=== PATIENT | male | born 1980 | race American Indian/Alaskan Native ===

== ENCOUNTER 2020-03-02 06:53 | Inpatient (IN) | payer SELFPAY ==
[2020-03-02] MEDS ORDERED: SODIUM CHLORIDE 0.9% 1000 ML 1,000 ML IV ONE (07:03)
--- NOTE | 2020-03-02 07:07 | Emergency Department Report ---
HPI - General Time Seen by Provider: 03/02/20 06:58 - HPI HPI: 39-year-old male presents to the emergency department via EMS after he was found unresponsive in the bathtub. Patient says he does not remember anything that occurred this morning and also does not appear very forthcoming. It is unknown who called EMS. Patient received some Narcan in route which did appear to grea tly improve his mental status. The patient is awake and conversive during my initial examination. He has a past medical history of asthma. The patient admits to smoking marijuana yesterday. He says that he occasionally will use a Xanax but has not done so in the past 24 hours. He drank 1 beer last night. ED Past Medical Hx - Medications Home Medications: Home Medications Medication Instructions Recorded Confirmed Last Taken Type No Known Home Medications [No 03/02/20 03/02/20 Unknown History Reported Home Medications] ED Review of Systems ROS: Stated complaint: AMS Other details as noted in HPI Comment: All other systems reviewed and negative Constitutional: denies: chills, fever Eyes: denies: eye pain, vision change ENT: denies: ear pain, throat pain Respiratory: denies: cough, shortness of breath Cardiovascular: denies: chest pain, palpitations Gastrointestinal: denies: abdominal pain, vomiting Genitourinary: denies: dysuria, discharge Musculoskeletal: denies: back pain, arthralgia Skin: denies: rash, lesions Neurological: other (Unresponsive episode). denies: headache Physical Exam - Physical Exam Physical Exam: GENERAL: The patient is well-developed well-nourished. HENT: Normocephalic. Atraumatic. Patient has moist mucous membranes. EYES: Extraocular motions are intact. NECK: Supple. Trachea is midline. CHEST/LUNGS: Clear to auscultation. There is no respiratory distress noted. HEART/CARDIOVASCULAR: Irregular. There is no tachycardia. There is no murmur. ABDOMEN: Abdomen is soft, nontender. Patient has normal bowel sounds. There is no abdominal distention. SKIN: Skin is warm and dry. NEURO: Patient is sleepy but is easily arousable. Once awake he is oriented to person, place and time. The patient has no focal neurologic deficits. Normal speech. Cranial nerves II through XII grossly intact. MUSCULOSKELETAL: There is no tenderness or deformity. There is no evidence of acute injury. ED Course - Consultations Consultation #1: 03/02/20 09:06 I spoke with the radiology receptionist on-call, Dr. Cyndi Dumont, regarding the patient's new onset atrial fibrillation with cocaine use. If the patient's only risk factor for thromboembolism is this new onset A. fib that is rate controlled and in this young individual, then heparin or anticoagulation is not necessary at this time. They are happy to see the patient as a consult. ED Medical Decision Making - Lab Data Result diagrams: 03/02/20 07:00 03/02/20 07:00 - EKG Data -: EKG Interpreted by Me - EKG Data When compared to previous EKG there are: previous EKG unavailable Interpretation: other (Atrial fibrillation, normal axis, prolonged QTC, rate of 91 bpm, LVH) - Radiology Data Radiology results: report reviewed, image reviewed interpreted by me: Chest x-ray does not show any acute process. There are no pleural effusions, obvious pneumonia and there is no pneumothorax. CT head/brain wo con INDICATION / CLINICAL INFORMATION: Syncope, unresponsive episode. TECHNIQUE: All CT scans at this location are performed using CT dose reduction for ALARA by means of automated exposure control. COMPARISON: None available. FINDINGS: No intracranial hemorrhage, mass effect or abnormal extra- axial fluid collection. The ventricular system and basilar cisterns are normal. No evidence of territorial infarction. The visualized paranasal sinuses and osseous structures are normal. IMPRESSION: 1. No acute intracranial abnormality. CTA CHEST WITH CONTRAST INDICATION / CLINICAL INFORMATION: MAIN: Syncope with new onset a-fib, elevated dimer OMNIPAQUE 350 60ML LOW GFR. TECHNIQUE: Axial CT images were obtained through the chest after injection of IV contrast. 3 plane MIP and/or 3D reconstructions were produced. All CT scans at this location are performed using CT dose reduction for ALARA by means of automated exposure control. COMPARISON: None available. FINDINGS: PULMONARY ARTERIES: No pulmonary emboli. THORACIC AORTA: No significant abnormality. HEART: No significant abnormality. CORONARY ARTERIES: No significant calcification. MEDIASTINUM / NUNU: No significant abnormality. PLEURA: No pleural effusion. No pneumothorax. LUNGS: No acute air space or interstitial disease. ADDITIONAL FINDINGS: None. UPPER ABDOMEN: No acute findings. SKELETAL STRUCTURES: No significant osseous abnormality. IMPRESSION: 1. No CT evidence for pulmonary embolism. 2. No acute findings. - Medical Decision Making This patient presents to the emergency department after he was found unresponsive in a bathtub at home. He was awake by the time he arrived to the emergency department after receiving Narcan. There are no obvious focal, motor or sensory deficits on examination. Cranial nerves II through XII grossly intact. CT scan of the head did not show any bleed, shift, mass, ischemia, or any other acute process. EKG shows rate controlled atrial fibrillation which is new onset for this patient. The patient's labs shows venous acidosis, lactic acidosis, and initial elevated serum blood sugar of about 370, and a urine drug screen positive for cocaine and marijuana. The patient did not require any insulin as the IV fluid resuscitation given to him treated the hyperglycemia. Cardiology was contacted and consulted regarding the new onset A. fib. Patient will be admitted to the hospital for further evaluation and treatment and was accepted for admission by the hospitalist service. Critical Care Time: Yes Critical care time in (mins) excluding proc time.: 35 Critical care attestation.: If time is entered above; I have spent that time in minutes in the direct care of this critically ill patient, excluding procedure time. Critical care time was spent on this patient in doing his initial evaluation, multiple re- evaluations, ordering and interpretation of labs and imaging, IV fluid resuscitation, cardiology consultation, multiple discussions with the patient. Critical Care Time: 35 minutes ED Disposition Clinical Impression: New onset atrial fibrillation, Acidosis, Hyperglycemia, Unresponsive episode, Cocaine use Disposition: 09 OP ADMIT IP TO THIS HOSP Is pt being admited?: Yes Condition: Serious Time of Disposition: 09:08
[2020-03-02 07:21] LABS: Basophils % (Auto) 0.4 % (0.0-1.8); Eosinophils % (Auto) 0.2 % (0.0-4.3); Hematocrit 40.9 % (35.5-45.6); Hemoglobin 13.7 gm/dl (11.8-15.2); Lymphocytes # (Auto) 2.2 K/mm3 (1.2-5.4); Lymphocytes % (Auto) 30.9 % (13.4-35.0); Mean Corpuscular HGB Conc 34 % (32-34); Mean Corpuscular Volume 91 fl (84-94); Monocytes # (Auto) 0.3 K/mm3 (0.0-0.8); Monocytes % (Auto) 4.4 % (0.0-7.3); Platelet Count 232 K/mm3 (140-440); Red Cell Distribution Width 14.7 % (13.2-15.2)
[2020-03-02 07:37] LABS: Albumin 4.9 g/dL (3.9-5); Calcium 9.3 mg/dL (8.4-10.2)
[2020-03-02] MEDS ORDERED: INSULIN REGULAR, HUMAN 100 UNITS/1 ML IV ONE (07:41)
[2020-03-02 07:55] LABS: INR 1.01 (0.87-1.13)
[2020-03-02 07:56] LABS: Partial Thromboplastin Time 25.8 Sec. (24.2-36.6)
[2020-03-02 08:01] LABS: Bilirubin,Urine NEG (Negative); Blood,Urine NEG (Negative); Color,Urine Yellow (Yellow); Mucus,Urine FEW /HPF; Protein,Urine <15 mg/dL mg/dL (Negative); Urobilinogen,Urine < 2.0 mg/dL (<2.0)
[2020-03-02 08:07] LABS: Amphetamine Screen,Urine PRESUMPTIVE NEGATIVE; Benzodiazepines Screen,Urine PRESUMPTIVE NEGATIVE; Methadone Screen,Urine PRESUMPTIVE NEGATIVE; Opiate Screen,Urine PRESUMPTIVE NEGATIVE
--- NOTE | 2020-03-02 08:09 | XRay Report ---
CHEST 1 VIEW INDICATION / CLINICAL INFORMATION: unresponsive episode. COMPARISON: None available. FINDINGS: SUPPORT DEVICES: None. HEART / MEDIASTINUM: No significant abnormality. LUNGS / PLEURA: No significant pulmonary or pleural abnormality. No pneumothorax. ADDITIONAL FINDINGS: No significant additional findings. IMPRESSION: 1. No acute findings. Signer Name: Lexa Vela MD Signed: 03/02/2020 8:04 AM Workstation Name: [id number]
--- NOTE | 2020-03-02 08:29 | Cat Scan Report ---
CT head/brain wo con INDICATION / CLINICAL INFORMATION: Syncope, unresponsive episode. TECHNIQUE: All CT scans at this location are performed using CT dose reduction for ALARA by means of automated e xposure control. COMPARISON: None available. FINDINGS: No intracranial hemorrhage, mass effect or abnormal extra-axial fluid collection. The ventricular system and basilar cisterns are normal. No evidence of territorial infarction. The visualized paranasal sinuses and osseous structures are normal. IMPRESSION: 1. No acute intracranial abnormality. Signer Name: Lexa Vela MD Signed: 03/02/2020 8:25 AM Workstation Name: [id number]
[2020-03-02 08:40] LABS: Cannabinoid Screen,Urine PRESUMPTIVE POSITIVE; Cocaine Screen,Urine PRESUMPTIVE POSITIVE
[2020-03-02] MEDS ORDERED: HEPARIN 10,000 UNITS/10 ML VIAL IV ONE (08:58)
[2020-03-02] MEDS ORDERED: HEPARIN/ 0.45% NACL DRIP 25,000 UNIT/500 ML BAG IV SCH (09:00)
--- NOTE | 2020-03-02 10:28 | Cat Scan Report ---
CTA CHEST WITH CONTRAST INDICATION / CLINICAL INFORMATION: MAIN: Syncope with new onset a-fib, elevated dimer OMNIPAQUE 350 60ML LOW GFR. TECHNIQUE: Axial CT images were obtained through the chest after injection of IV contrast. 3 plane MIP and/or 3D reconstructions were produced. All CT scans at this location are performed using CT dose reduction f or ALARA by means of automated exposure control. COMPARISON: None available. FINDINGS: PULMONARY ARTERIES: No pulmonary emboli. THORACIC AORTA: No significant abnormality. HEART: No significant abnormality. CORONARY ARTERIES: No significant calcification. MEDIASTINUM / NUNU: No significant abnormality. PLEURA: No pleural effusion. No pneumothorax. LUNGS: No acute air space or interstitial disease. ADDITIONAL FINDINGS: None. UPPER ABDOMEN: No acute findings. SKELETAL STRUCTURES: No significant osseous abnormality. IMPRESSION: 1. No CT evidence for pulmonary embolism. 2. No acute findings. Signer Name: Lexa Vela MD Signed: 03/02/2020 10:23 AM Workstation Name: [id number]
--- NOTE | 2020-03-02 12:22 | Consultation ---
History of Present Illness Consult date: 03/02/20 Requesting physician: SANA PLATA Consult reason: atrial fibrillation History of present illness: 39-year-old male presents to the emergency department via EMS after he was found unresponsive in the bathtub. Patient received some Narcan in route which did appear to greatly improve his mental status. He has a known past medical history of asthma. The patient admits to smoking marijuana yesterday. In the emergency department the patient was noted to be in atrial fibrillation. Currently on telemetry he is in normal sinus rhythm. Past History Past Medical History: atrial fib, other (Asthma) Past Surgical History: No surgical history Social history: smoking, other (Marijuana) Family history: no significant family history Medications and Allergies Allergies Allergy/AdvReac Type Severity Reaction Status Date / Time No Known Allergies Allergy Verified 03/02/20 07:11 Home Medications Medication Instructions Recorded Confirmed Last Taken Type No Known Home Medications [No 03/02/20 03/02/20 Unknown History Reported Home Medications] Active Meds: Active Medications Sodium Chloride (Nacl 0.9% 1000 Ml) 1,000 mls @ 125 mls/hr IV ONCE ONE Stop: 03/02/20 15:02 Last Admin: 03/02/20 07:29 Dose: 125 mls/hr Documented by: Review of Systems Constitutional: no weight loss, no weight gain, no fever, no chills Ears, nose, mouth and throat: no ear pain, no ear discharge, no tinnitis Cardiovascular: syncope (Altered mental state), no chest pain, no orthopnea, no palpitations, no edema, no leg edema Respiratory: no shortness of breath, no dyspnea on exertion Gastrointestinal: no abdominal pain, no nausea, no vomiting Genitourinary Male: no dysuria, no hematuria, no flank pain Rectal: no pain, no incontinence Musculoskeletal: no neck stiffness, no neck pain Integumentary: no rash, no pruritis Neurological: no paralysis, no weakness Psychiatric: no anxiety, no memory loss Endocrine: no cold intolerance, no heat intolerance Hematologic/Lymphatic: no easy bruising, no easy bleeding Allergic/Immunologic: no urticaria, no allergic rhinitis Physical Examination Vital Signs Temp Pulse Resp BP Pulse Ox 98.2 F 118 H 20 178/100 97 03/02/20 07:11 03/02/20 07:11 03/02/20 07:11 03/02/20 07:11 03/02/20 07:11 General appearance: no acute distress HEENT: Positive: PERRL, EOMI Neck: Positive: neck supple, trachea midline Cardiac: Positive: Reg Rate and Rhythm Lungs: Positive: Normal Exam, clear to auscultation Neuro: Positive: Grossly Intact Abdomen: Positive: Unremarkable Male genitourinary: Positive: deferred Skin: Negative: Rash, Suspicious Lesions Extremities: Present: normal, warm. Absent: edema Results 03/02/20 07:00 03/02/20 07:00 Cardiac Enzymes 03/02/20 Range/Units 07:00 AST 27 (5-40) units/L Coagulation 03/02/20 Range/Units 07:00 PT 13.4 (12.2-14.9) Sec. INR 1.01 (0.87-1.13) APTT 25.8 (24.2-36.6) Sec. CBC 03/02/20 Range/Units 07:00 WBC 7.0 (4.5-11.0) K/mm3 RBC 4.50 (3.65-5.03) M/mm3 Hgb 13.7 (11.8-15.2) gm/dl Hct 40.9 (35.5-45.6) % Plt Count 232 (140-440) K/mm3 Lymph # 2.2 (1.2-5.4) K/mm3 [place] # 0.3 (0.0-0.8) K/mm3 Eos # 0.0 (0.0-0.4) K/mm3 Baso # 0.0 (0.0-0.1) K/mm3 Comprehensive Metabolic Panel 03/02/20 Range/Units 07:00 Sodium 142 (137-145) mmol/L Potassium 4.4 (3.6-5.0) mmol/L Chloride 102.2 (98-107) mmol/L Carbon Dioxide 23 (22-30) mmol/L BUN 17 (9-20) mg/dL Creatinine 1.4 (0.8-1.5) mg/dL Glucose 368 H (75-100) mg/dL Calcium 9.3 (8.4-10.2) mg/dL AST 27 (5-40) units/L ALT 20 (7-56) units/L Alkaline Phosphatase 77 (35-129) units/L Total Protein 8.9 H (6.3-8.2) g/dL Albumin 4.9 (3.9-5) g/dL - Imaging and Cardiology Echo: pending Assessment and Plan 39-year-old male Past medical history of asthma Admitted with altered mental status after smoking marijuana and unknown drugs Atrial fibrillation with rapid ventricular spots currently in sinus rhythm Recommend echocardiogram No recommendation for anticoagulation at this time
--- NOTE | 2020-03-02 14:10 | History and Physical Report ---
History of Present Illness Date of examination: 03/02/20 Date of admission: 03/02/20 09:08 Chief complaint: Syncope History of present illness: Patient is 39 yo with history of asthma brought in because found unresponsive in bathroom at home. Paramedics were called and he was brought to ED here. He was given Narcan en route with some improvement in his mental status. patient was seen and evaluated in ED. he was found to have atrial fibrillation with rapid ventricular response. CT head was unremarkable. Chest x ray unremarkable. cardiology was consulted in ED. Urine drug screen revealed cocaine and marijuana. Currently he is awake,alert. Will admit for further evaluation. Past History Past Medical History: other (Asthma) Past Surgical History: No surgical history Social history: smoking, other (Marijuana) Family history: no significant family history Medications and Allergies Allergies Allergy/AdvReac Type Severity Reaction Status Date / Time No Known Allergies Allergy Verified 03/02/20 07:11 Home Medications Medication Instructions Recorded Confirmed Last Taken Type No Known Home Medications [No 03/02/20 03/02/20 Unknown History Reported Home Medications] Active Meds: Active Medications Sodium Chloride (Nacl 0.9% 1000 Ml) 1,000 mls @ 125 mls/hr IV ONCE ONE Stop: 03/02/20 15:02 Last Admin: 03/02/20 07:29 Dose: 125 mls/hr Documented by: Review of Systems All systems: negative (No fever, no chest pain, no headache, no abd pain. Al other systems reviewed and are negative) Exam - Physical Exam Narrative exam: GEN: Not in acute distress, HEENT: Normocephalic, atraumatic, Neck: supple, No JVD Lungs: Clear to auscultation bilaterally, heart;S1 and S2 reg, no murmurs, rubs or gallop Abd:soft, NT, non distended, normal bowel sounds, Ext: No edema, no clubbing, no cyanosis, Neuro: Awake,alert,oriented X3 , no focal signs, Pscych. Calm. appropriate - Constitutional Vitals: Temp Pulse Resp BP Pulse Ox 98.2 F 66 16 122/56 99 03/02/20 07:11 03/02/20 11:54 03/02/20 10:48 03/02/20 10:48 03/02/20 10:48 Results - Labs CBC & Chem 7: 03/02/20 07:00 03/02/20 07:00 Labs: Abnormal lab results 03/02/20 03/02/20 03/02/20 Range/Units 07:00 07:00 07:53 D-Dimer 369.61 H (0-234) ng/mlDDU VBG pH 7.144 L* (7.320-7.420) Glucose 368 H (75-100) mg/dL POC Glucose (70-105) Lactic Acid (0.7-2.0) mmol/L Total Creatine Kinase 183 H (55-170) units/L Total Protein 8.9 H (6.3-8.2) g/dL Salicylates (2.8-20.0) mg/dL Acetaminophen (10.0-30.0) ug/mL 03/02/20 03/02/20 03/02/20 Range/Units 08:20 08:32 08:32 D-Dimer (0-234) ng/mlDDU VBG pH (7.320-7.420) Glucose (75-100) mg/dL POC Glucose 194 H (70-105) Lactic Acid 3.50 H* (0.7-2.0) mmol/L Total Creatine Kinase (55-170) units/L Total Protein (6.3-8.2) g/dL Salicylates < 0.3 L (2.8-20.0) mg/dL Acetaminophen (10.0-30.0) ug/mL 03/02/20 Range/Units 08:32 D-Dimer (0-234) ng/mlDDU VBG pH (7.320-7.420) Glucose (75-100) mg/dL POC Glucose (70-105) Lactic Acid (0.7-2.0) mmol/L Total Creatine Kinase (55-170) units/L Total Protein (6.3-8.2) g/dL Salicylates (2.8-20.0) mg/dL Acetaminophen < 5.0 L (10.0-30.0) ug/mL Assessment and Plan Syncope admit Obtain Echo Neurochecks Afib with RVR Now in NSR cardiology consulted, evaluated patient No antoicoagulation needed so far Obtain Echo Polysubstance abuse cocaine, marijuana i counseled him on quitting Full code status.
[2020-03-02] MEDS ORDERED: SODIUM CHLORIDE 0.9% 1000 ML 1,000 ML IV SCH (15:00)
[2020-03-02] MEDS ORDERED: ACETAMINOPHEN 325 MG TAB PO PRN (15:00)
[2020-03-02] MEDS ORDERED: ONDANSETRON 4 MG/2 ML INJ IV PRN (15:00)
[2020-03-02] MEDS ORDERED: ENOXAPARIN 40 MG/0.4 ML INJ SUB-Q SCH (22:00)
[2020-03-03 05:17] LABS: Basophils % (Auto) 0.5 % (0.0-1.8); Eosinophils # (Auto) 0.1 K/mm3 (0.0-0.4); Eosinophils % (Auto) 2.4 % (0.0-4.3); Hematocrit 37.5 % (35.5-45.6); Hemoglobin 12.5 gm/dl (11.8-15.2); Lymphocytes # (Auto) 2.6 K/mm3 (1.2-5.4); Lymphocytes % (Auto) 45.2 % (13.4-35.0); Mean Corpuscular HGB Conc 33 % (32-34); Mean Corpuscular Volume 91 fl (84-94); Monocytes # (Auto) 0.5 K/mm3 (0.0-0.8); Monocytes % (Auto) 8.6 % (0.0-7.3); Platelet Count 193 K/mm3 (140-440); Red Blood Count 4.14 M/mm3 (3.65-5.03); Red Cell Distribution Width 15.1 % (13.2-15.2)
[2020-03-03 05:28] LABS: BUN/Creatinine Ratio 15; Blood Urea Nitrogen 16 mg/dL (9-20); Calcium 8.5 mg/dL (8.4-10.2); Hemolysis Index 10
[2020-03-03 10:16] VITALS: BP 140/75
--- NOTE | 2020-03-03 11:03 | Progress Note ---
Assessment and Plan 39-year-old male Past medical history of asthma Admitted with altered mental status after smoking marijuana and unknown drugs Atrial fibrillation with rapid ventricular --> SR Pt remains in NSR. tte reviewed - EF 55-60%, no significant abnormalities. No recommendation for anticoagulation at this time Currently stable cardiac status. Pt may discharge from cardiology standpoint. Recommend pt follow up in our office with Dr. Dumont within 2-3 weeks of discharge ([phone]). The patient has been seen in conjunction with Dr. Dumont who agrees with the assessment and plan of care. Subjective Date of service: 03/03/20 Principal diagnosis: AFib Interval history: pt resting in bed, no current cardiac complaints. tele reviewed - in SR. Objective Last Vital Signs Temp 98.3 F 03/03/20 08:00 Pulse 48 L 03/03/20 08:00 Resp 18 03/03/20 08:06 BP 140/75 03/03/20 08:00 Pulse Ox 97 03/03/20 08:00 - Physical Examination General: No Apparent Distress HEENT: Positive: PERRL, EOMI Neck: Positive: neck supple, trachea midline Cardiac: Positive: Reg Rate and Rhythm, S1/S2 Lungs: Positive: clear to auscultation Neuro: Positive: Grossly Intact Abdomen: Positive: Unremarkable Skin: Negative: Rash, Suspicious Lesions Extremities: Present: normal, warm. Absent: edema - Labs and Meds CBC 03/03/20 Range/Units 04:25 WBC 5.7 (4.5-11.0) K/mm3 RBC 4.14 (3.65-5.03) M/mm3 Hgb 12.5 (11.8-15.2) gm/dl Hct 37.5 (35.5-45.6) % Plt Count 193 (140-440) K/mm3 Lymph # 2.6 (1.2-5.4) K/mm3 [place] # 0.5 (0.0-0.8) K/mm3 Eos # 0.1 (0.0-0.4) K/mm3 Baso # 0.0 (0.0-0.1) K/mm3 Comprehensive Metabolic Panel 03/03/20 Range/Units 04:25 Sodium 138 (137-145) mmol/L Potassium 3.9 (3.6-5.0) mmol/L Chloride 100.9 (98-107) mmol/L Carbon Dioxide 27 (22-30) mmol/L BUN 16 (9-20) mg/dL Creatinine 1.1 (0.8-1.5) mg/dL Glucose 90 (75-100) mg/dL Calcium 8.5 (8.4-10.2) mg/dL - Imaging and Cardiology Echo: pending
--- NOTE | 2020-03-03 12:17 | Discharge Summary ---
Providers - Providers Date of Admission: 03/02/20 09:08 Date of discharge: 03/03/20 Attending physician: SANA PLATA 03/02/20 09:06 Consult to Cardiology [CONS] Routine Consulting Provider: ROBBIE MAYA Reason For Exam: new onset a-fib Primary care physician: STAVE BLOCK SPLITTER Hospitalization Condition: Fair Disposition: DC-01 TO HOME OR SELFCARE Core Measure Documentation - Palliative Care Palliative Care/ Comfort Measures: Not Applicable - Core Measures Any of the following diagnoses?: none Exam - Constitutional Vitals: Temp Pulse Resp BP Pulse Ox 98.3 F 54 L 18 140/75 97 03/03/20 08:00 03/03/20 10:00 03/03/20 08:06 03/03/20 08:00 03/03/20 08:00 Plan Activity: no restrictions Additional Instructions: 1.Avoid cocaine. 2.Avoid marijuana. 3.Follow up with PCP in 1 week Plan of Treatment: 1.Follow up with PCP in 1 week. 2.Follow up with Dr. Hanna Follow up with: PRIMARY CARE, [Primary Care Provider] - 7 Days
== END 2020-03-03 14:20 | disposition home or self-care (01) | DRG 309 ==
LOC: ED 06:53 → 4A 09:08
PROVIDERS: ADMIT Internal Medicine; ATTEND Internal Medicine
DX: I48.91 Unspecified atrial fibrillation (principal); E87.2 Acidosis; R73.9 Hyperglycemia, unspecified; F19.10 Other psychoactive substance abuse, uncomplicated; J45.909 Unspecified asthma, uncomplicated; F17.200 Nicotine dependence, unspecified, uncomplicated; F12.90 Cannabis use, unspecified, uncomplicated; F14.10 Cocaine abuse, uncomplicated; Z71.51 Drug abuse counseling and surveillance of drug abuser
CPT/HCPCS: 36415; 70450; 71045; 71275; 80048; 80053; 80307; 80320; 81001; 82140; 82550; 82805; 82962; 83036; 83930; 84443; 84484; 85025; 85379; 85610; 85730; 93005; 99406; G0378; C8929; G0480; J1650; J1815; J2405; J7030; Q9957; Q9967